=== PATIENT | female | born 1975 | race Caucasian/White ===

== ENCOUNTER 2016-06-24 12:28 | Emergency (ER) | payer OTHER ==
[~2016-06-24] VITALS: Ht 162.6 cm; Wt 83.3 kg
[~2016-06-24 12:28] MED LIST: CMBIN INH
[2016-06-24 12:32] VITALS: TEMP 36.7; Ht 162.6 cm; Wt 83.3 kg
--- NOTE | 2016-06-24 13:06 | DIAGNOSTIC IMAGING REPORT ---
LEFT ANKLE 3 VIEWS HISTORY: LEFT, TWISTING INJURY 2 WEEKS AGO COMPARISON: None. FINDINGS: There is no fracture or dislocation. Soft tissues are unremarkable. No radiopaque foreign bodies. IMPRESSION: No fractures. Electronically signed by: Beka Cristina M.D. 06/24/2016 1:04 PM Dictated Date/Time: 06/24/2016 1:03 PM
--- NOTE | 2016-06-24 13:13 | EMERGENCY ROOM VISIT NOTE ---
ED Visit Note First contact with patient: 12:41 CHIEF COMPLAINT: Left ankle injury 2 weeks ago HISTORY OF PRESENT ILLNESS: Patient is a 40 year-old white female who presents emergency department for evaluation of left ankle pain 2 weeks. Patient relates that she rolled both of her ankles about 2 weeks ago, but the left has continued to give her problems. She notes pain over the lateral aspect of the ankle that is worse with weightbearing. She has wrapped the ankle, taken over- the-counter medications and try to stay off of it. She is able to walk on it but she is limping. She notes that it did swell initially after the injury with swelling has gone down. She denies a prior history of injuries to this ankle. No foot or knee pain. REVIEW OF SYSTEMS: Review of systems as per HPI. All other systems reviewed were negative. At least 6 systems reviewed. PMH: Electronic medical records are reviewed and summarized as above/below. See Problem List. SOCIAL HISTORY: Patient lives at home. Smoker. PHYSICAL EXAM: Vital Signs: Reviewed Nurse's notes. MENTAL STATUS: Alert, oriented, and cooperative. The left ankle is tender over the lateral aspect but the skin is intact and there is no ligamentous instability. No swelling noted. No pain over the 5th metatarsal or fibular head. Lisfranc joint is negative. There is no deformity. The foot and toes are warm and well- perfused. Sensation to pain and light touch is intact. EMERGENCY DEPARTMENT COURSE: X-ray reveals no fracture, only the soft tissue swelling. A gel splint were applied to the ankle under my direction and the position was satisfactory. Differential diagnosis include foot verses ankle sprain/fracture, contusion, dislocation. Problem List Medical Problems: (1) Cholecystectomy Status: Resolved (2) emphysema Status: Chronic Current/Historical Medications Scheduled Lamotrigine (Lamictal), 200 MG PO HS Paroxetine (Paxil), 40 MG PO DAILY Scheduled PRN Ipratropium-Albuterol (Combivent Respimat), 2 PUFFS INH QID PRN for SOB/Wheezing Allergies Coded Allergies: Iodinated Contrast Media (Verified Allergy, Unknown, ., 06/24/16) Iodine (Verified Allergy, Unknown, 06/24/16) Vital Signs Date Time Temp Pulse Resp B/P Pulse Ox O2 Delivery O2 Flow Rate FiO2 06/24/16 13:33 78 18 138/79 99 06/24/16 12:32 36.7 92 18 126/79 97 Room Air Departure Information Impression Primary Impression: Left ankle sprain Referrals Mackenzie Heller C.R.NDanishP (PCP) Patient Instructions My [facility] Additional Instructions Ibuprofen(Motrin, Advil) may be used for fever or pain. Use 600mg every six hours as needed. Take with food. Avoid using more than 2400mg in a 24 hour period. Do not use 2400mg per day for more than three consecutive days without physician direction. Prolonged inappropriate use can lead to stomach upset or ulcers. This medication can be taken if you need to drive, work, or perform activities which may be dangerous when taking narcotic pain medication. (AND/OR) Acetaminophen(Tylenol) may be used for fever or pain. Use 1000mg every six hours as needed. Avoid using more than 3000mg in a 24 hour period. This medication can be taken if you need to drive, work, or perform activities which may be dangerous when taking narcotic pain medication. Ice compresses for 20 minutes at a time four times daily for 2-3 days. Use the gel splint as instructed. Rest and elevate your injury. Continue current medications. Return to the ER immediately for any numbness, tingling, severe pain, extreme swelling in the extremity or as needed. Followup with your family doctor or orthopedic surgery if no improvement in 5-7 days.
[2016-06-24 13:33] VITALS: BP 138/79; PULSE 78; O2SAT 99
[2016-07-31] MEDS ORDERED: LAMO200T38 PO (00:36)
[2016-07-31] MEDS ORDERED: IPRA1AER2 INH (12:53)
[2016-07-31] MEDS ORDERED: PARO1TAB29 PO (12:53)
== END 2016-06-24 13:35 | disposition home or self-care (01) ==
LOC: C.EDB 12:29 → C.EDD 13:35
DX: S93.402A Sprain of unspecified ligament of left ankle, initial encounter (principal); X58.XXXA Exposure to other specified factors, initial encounter; J43.9 Emphysema, unspecified; F17.200 Nicotine dependence, unspecified, uncomplicated; Z90.49 Acquired absence of other specified parts of digestive tract; Z79.899 Other long term (current) drug therapy; Z91.041 Radiographic dye allergy status; Z91.09 Other allergy status, other than to drugs and biological substances

== ENCOUNTER 2016-07-31 17:24 | Emergency (ER) | payer OTHER ==
[~2016-07-31] VITALS: Ht 162.6 cm; Wt 83.0 kg
[~2016-07-31 17:24] MED LIST changes: -CMBIN INH; +IPRA1AER2 INH; +LAMO200T38 PO; +PARO1TAB29 PO
[2016-07-31 17:29] VITALS: TEMP 36.9; Ht 162.6 cm; Wt 83.0 kg
--- NOTE | 2016-07-31 18:05 | DIAGNOSTIC IMAGING REPORT ---
LEFT FOOT 3 VIEWS CLINICAL HISTORY: Fall with left foot pain. FINDINGS: 3 views of left foot are correlated with radiographs of left ankle dated 06/24/2016. The skeletal structures are well mineralized. No fracture is seen. The joint spaces of the foot are well-maintained. Mild dorsal soft tissue swelling is noted. IMPRESSION: Mild soft tissue swelling. No fracture is seen. Electronically signed by: Jose Miguel Higuera M.D. 07/31/2016 6:04 PM Dictated Date/Time: 07/31/2016 6:02 PM
[2016-07-31] MEDS ORDERED: TRAMADOL HCL 50 MG TAB PO STA (18:38)
[2016-07-31] MEDS ORDERED: TRAM-10 PO (18:41)
[2016-07-31 18:44] VITALS: BP 112/77; PULSE 92; O2SAT 98
--- NOTE | 2016-08-01 18:58 | EMERGENCY ROOM VISIT NOTE ---
ED Visit Note First contact with patient: 18:07 Chief Complaint: Left foot pain. History of Present Illness: Ms. Johansen is a 40-year-old white female who is brought into the ED via wheelchair complaining of left foot pain. Patient reports approximately 4 hours ago she was standing on a bin to reach something on a higher shelf. The bin broke and she fell through injuring her left foot. Currently she complains of a sharp pain over the navicular, medial and middle cuneiform tarsals. She rates her discomfort 8/10. Her pain is nonradiating. Her pain worsens with ambulation and palpation. She has not identified any alleviating factors related to the pain. She has not taken any medications for pain prior to arrival at the hospital. She denies any associated symptoms including lower leg pain, ankle pain, foot/toe weakness/numbness/tingling. Additionally she denies any previous significant injuries or fractures to the left foot. Review of Systems: As noted above in history of present illness. Past Medical History: Status post cholecystectomy and appendectomy. Current Medications: Lamictal, Combivent, Paxil. Allergies to Medications: Iodine. Social History: Patient is currently employed; she feels safe in her home environment; she admits to tobacco use and denies alcohol use. Physical Examination: Vital Signs: Date Time Temp Pulse Resp B/P Pulse Ox O2 Delivery O2 Flow Rate FiO2 07/31/16 18:44 92 16 112/77 98 07/31/16 17:29 36.9 101 20 127/85 97 Room Air GENERAL: 40-year-old female in mild to moderate distress due to pain, nontoxic- appearing, afebrile and hemodynamically stable. NEUROLOGICAL: Awake, alert and oriented to person, place and time. Answering questions appropriately and following commands. Normal gait. Good hand eye coordination. No focal motor sensory deficits. SKIN: Warm, dry and pink. No open soft tissue trauma noted. LEFT LOWER LEG: No gross bony deformity. No tenderness throughout the lower leg or ankle. Moderate tenderness over the dorsal aspect of the foot over the navicular and medial cuneiform tarsals without bony deformity or crepitus. There was moderate swelling over the dorsal aspect of the foot with what appears to be early bruising. Patient has full range of motion and plantar flexion and dorsiflexion of the ankle and flexion and extension of all toes. Throughout the foot the skin was warm and pink and capillary refill was brisk. She was able to distinguish light sensations through all dermatomes. ED Course: Patient is assessed as noted above. Patient was given ice and 50 mg of tramadol by mouth for pain. Left Foot X-Rays: Were read by myself and the radiologist showing no acute fractures or dislocations. Dorsal foot swelling noted. Patient was placed in a foot immobilizer and on nonweightbearing crutches. Patient was educated about today's findings and instructed on her treatment plan ; she verbalizes understanding and agreement with plan. Clinical Impression: Left foot pain. Possible early contusion. Disposition: Patient discharged home in stable condition; prior to departure she was reassessed and subjectively reported she was feeling slightly better and rated her discomfort 6/10. Plan: Patient was encouraged to use 50 mg of Ultram every 6 hours for severe pain and 650 mg of acetaminophen every 6 hours for mild pain. Patient was encouraged use ice on pain and swelling areas 5-6 times a day for 30 minutes. Patient was encouraged to elevate her foot at rest. Patient was encouraged to use postop shoe and nonweightbearing crutches for 3-6 days or until pain free. Patient was encouraged to follow-up with orthopedics if no better in 7-10 days. Patient was encouraged return the ED for worsening/uncontrolled pain, uncontrolled swelling, uncontrolled numbness/tingling of the toes or foot or any new/concerning symptoms.
== END 2016-07-31 19:12 | disposition home or self-care (01) ==
LOC: C.EDB 17:25 → C.EDD 19:12
DX: M79.672 Pain in left foot (principal); W19.XXXA Unspecified fall, initial encounter; F17.200 Nicotine dependence, unspecified, uncomplicated

== ENCOUNTER → 2016-09-29 | Outpatient (CLI) | payer OTHER ==
[~2016-09-29] MED LIST changes: +TRAM-10 PO
[2016-09-29 13:12] LABS: ALT/SGPT 18 U/L (12-78); AST/SGOT 14 U/L (15-37); BLOOD UREA NITROGEN 15 mg/dl (7-18); BUN/CREATININE RATIO 16.3 (10-20); CALCIUM 9.2 mg/dl (8.5-10.1); CARBON DIOXIDE 27 mmol/L (21-32); CHLORIDE 108 mmol/L (98-107); CHOLESTEROL 164 mg/dl (0-200); CREATININE 0.92 mg/dl (0.60-1.20); GLUCOSE 98 mg/dl (70-99); POTASSIUM 4.3 mmol/L (3.5-5.1); SODIUM 139 mmol/L (136-145); TRIGLYCERIDES 151 mg/dl (0-150); VERY LOW DENSITY LIPOPROT CALC 30 mg/dl
[2016-09-29 13:21] LABS: ALB/GLOB RATIO 1.2 (0.9-2); ALKALINE PHOSPHATASE 108 U/L (45-117); CHOLESTEROL/HDL RATIO 4.4; FERRITIN 61.4 ng/ml (8.0-388.0); HDL CHOLESTEROL 37 mg/dl; LDL CHOLESTEROL CALCULATED 97 mg/dl; TOTAL IRON BINDING CAPACITY 281 mcg/dl (250-450)
[2016-09-29 13:43] LABS: COMPLETE YES; EOS % 2.3 %; IG% 0.4 %; LYMPH % 26.2 %; LYMPH ABS # 2.46 K/uL (1.2-3.4); MEAN CELL VOLUME 89.4 fL (80-100); MEAN CORPUSCULAR HEMOGLOBIN 30.3 pg (25-34); MEAN CORPUSCULAR HGB CONC 33.9 g/dl (32-36); MEAN PLATELET VOLUME 10.6 fL (7.4-10.4); MONO % 7.7 %; NEUT % 63.4 %; PLATELET COUNT 233 K/uL (130-400); RED BLOOD COUNT 4.92 M/uL (4.2-5.4); WHITE BLOOD COUNT 9.38 K/uL (4.8-10.8)
== END | disposition home or self-care (01) ==
LOC: C.LABPVFM 08:03
PROVIDERS: ATTEND Nurse Practitioner Family
DX: R53.83 Other fatigue (principal); Z83.49 Family history of other endocrine, nutritional and metabolic diseases

== ENCOUNTER → 2016-10-11 | Outpatient (CLI) | payer OTHER | END | disposition home or self-care (01) | LOC: C.LABPVFM 08:34 | PROVIDERS: ATTEND Nurse Practitioner Family | DX: Z00.00 Encounter for general adult medical examination without abnormal findings (principal) ==

== ENCOUNTER → 2017-06-27 | Outpatient (CLI) | payer OTHER ==
[~2017-06-27] MED LIST changes: +LAMO200T35 PO; -LAMO200T38 PO; -TRAM-10 PO
[2017-06-27 17:15] LABS: BASO % 0.1 %; BASO ABS # 0.01 K/uL (0-0.2); EOS % 2.7 %; EOS ABS # 0.26 K/uL (0-0.5); HEMOGLOBIN 15.5 g/dL (12.0-16.0); IG# 0.04 K/uL (0.00-0.02); LYMPH % 35.4 %; LYMPH ABS # 3.44 K/uL (1.2-3.4); MEAN CELL VOLUME 88.4 fL (80-100); MEAN CORPUSCULAR HEMOGLOBIN 30.5 pg (25-34); MEAN CORPUSCULAR HGB CONC 34.4 g/dl (32-36); MEAN PLATELET VOLUME 10.5 fL (7.4-10.4); MONO % 8.4 %; MONO ABS # 0.82 K/uL (0.11-0.59); NEUT ABS # 5.14 K/uL (1.4-6.5); PLATELET COUNT 236 K/uL (130-400); RED CELL DISTRIBUTION WIDTH CV 13.9 % (11.5-14.5); RED CELL DISTRIBUTION WIDTH SD 45.5 fL (36.4-46.3); WHITE BLOOD COUNT 9.71 K/uL (4.8-10.8)
== END | disposition home or self-care (01) ==
LOC: C.LABPVFM 16:09
PROVIDERS: ATTEND Nurse Practitioner
DX: R53.83 Other fatigue (principal); R59.0 Localized enlarged lymph nodes; J02.9 Acute pharyngitis, unspecified; E55.9 Vitamin D deficiency, unspecified